=== PATIENT | female | born 1980 | race Caucasian/White ===

== ENCOUNTER 2017-01-20 06:05 | Day surgery (SDC) | payer MEDICAID ==
[2017-01-18 10:14] LABS: BASOPHILS % 0.4 % (0.0-2.0); EOSINOPHILS # 0.1 10^3/ul (0.0-0.5); EOSINOPHILS % 1.8 % (0.0-7.0); HEMATOCRIT 35.7 % (37.0-47.0); LYMPHOCYTES # 1.8 10^3/ul (0.8-2.9); LYMPHOCYTES % 33.6 % (15.0-51.0); MEAN CORPUSCULAR HEMOGLOBIN 29.1 pg (29.0-33.0); MEAN CORPUSCULAR HGB CONC 33.6 g/dl (32.0-37.0); MEAN CORPUSCULAR VOLUME 86.7 fl (82.0-101.0); MEAN PLATELET VOLUME 9.5 fl (7.4-10.4); MONOCYTE # 0.5 10^3/ul (0.3-0.9); MONOCYTES % 9.4 % (0.0-11.0); NEUTROPHILS % 54.6 % (39.0-77.0); PLATELET COUNT 307 10^3/UL (140-415); RED BLOOD COUNT 4.12 10^6/ul (4.20-5.40); RED CELL DISTRIBUTION WIDTH 13.1 % (11.5-14.5); WHITE BLOOD COUNT 5.5 10^3/ul (4.8-10.8)
[2017-01-18 10:32] LABS: ADD UMIC YES; UR ASCORBIC ACID NEGATIVE (NEGATIVE); UR BILIRUBIN (Dip) NEGATIVE (NEGATIVE); UR BLOOD (Dip) 3+ mg/dL (NEGATIVE); UR CLARITY SLIGHTLY CLOUDY (CLEAR); UR COLOR YELLOW (YELLOW); UR GLUCOSE (Dip) NEGATIVE (NEGATIVE); UR KETONES (Dip) NEGATIVE (NEGATIVE); UR LEUKOCYTE ESTERASE (Dip) NEGATIVE Leu/ul (NEGATIVE); UR NITRITE (Dip) NEGATIVE (NEGATIVE); UR RBC > 182 /HPF (0-5); UR SPECIFIC GRAVITY (Dip) 1.016 (1.003-1.030); UR TOTAL PROTEIN (Dip) NEGATIVE (NEGATIVE); UR UROBILINOGEN (Dip) NEGATIVE (NEGATIVE)
[2017-01-18 10:41] LABS: INR 0.99; PROTIME 13.1 Sec (12.2-14.2)
[2017-01-18 10:42] LABS: PARTIAL THROMBOPLASTIN TIME 26.9 Sec (25.0-35.0)
[2017-01-18 10:43] LABS: ALBUMIN 4.1 g/dl (3.3-4.9); ALBUMIN/GLOBULIN RATIO 1.07; BILIRUBIN,INDIRECT 0.2 mg/dl (0-1.1); BILIRUBIN,TOTAL 0.2 mg/dl (0.2-1.3); TOTAL PROTEIN 7.9 g/dl (6.1-8.1)
[2017-01-18 10:53] LABS: POTASSIUM 3.9 mmol/L (3.5-5.1)
[2017-01-18 10:54] LABS: CALCIUM 9.2 mg/dl (8.4-10.2); CREATININE 0.62 mg/dl (0.44-1.00)
[2017-01-19 09:46] VITALS: BMI 35.2
--- NOTE | 2017-01-19 23:20 | PREOPHP ---
DATE OF ADMISSION: 01/20/2017 She is to be admitted tomorrow for laparoscopic bilateral tubal ligation. HISTORY OF PRESENT ILLNESS: This is a 36-year-old female 3, para 2, who presented in the of [place] requesting sterilization based on her parity. The alternatives to this, the benefits from the method, the risks and possible complications, as well as 1% failure rate, were discussed with the rekha escobedo in great detail in the office. She was allowed to ask questions, and all of the questions heather e answered to her satisfaction and she signed the appropriate surgical informed consent. PAST MEDICAL HISTORY: The patient denies any medical problems including diabetes, cardiovascular di sease, renal disease, liver disease, thyroid disease or neurological problems. ALLERGIES: SHE HAS NO KNOWN ALLERGIES. MEDICATIONS: Takes no medications on a regular basis. OBSTETRICAL HISTORY: The patient had 3 pregnancies, 2 of which ended up in normal deliveries. She had 1 spontaneous . FAMILY HISTORY: Noncontributory. REVIEW OF SYSTEMS: Noncontributory. PHYSICAL EXAMINATION: GENERAL: Well-developed and nourished, in no distress, alert and oriented x3, with a height of 5 fe et 4 and a weight of 200 pounds. The BMI is 35. VITAL SIGNS: Show temperature to be 98, blood pressure 128/78, respirations 16 per minute, pulse is 72 per minute and regular. HEENT: Within normal limits. NECK: Supple. Thyroid is not palpable. There is no lymphadenopathy. BREASTS: Show no masses or lumps. LUNGS: Clear to percussion and auscultation. HEART: Normal sinus rhythm without murmur. ABDOMEN: Soft, obese. No organomegaly is present. LOWER EXTREMITIES: Within normal limits. PELVIC: Normal external genitalia. Cervix is normal. Bimanual exam: The uterus is mobile, firm, in the midline. There are no adnexal masses present. IMPRESSION: 1. Desires voluntary sterilization. 2. Obesity. PLAN: The patient is to be admitted for a laparoscopic bilateral tubal ligation under general anest hesia tomorrow, 01/20/2017. Dictated By: JENNIFER TIRADO/MIK Conf#: [id number] DID#: [id number]
[2017-01-20] VITALS (12 sets, daily range): BP systolic 115–140; BP diastolic 53–78; PULSE 64–72; RESP 14–16; Ht 168.9 cm; Wt 91.1 kg
[~2017-01-20] VITALS: Ht 168.9 cm; Wt 91.1 kg
[2017-01-20] MEDS ORDERED: CEFAZOLIN 1 GM INJ ONE (07:00)
[2017-01-20] MEDS ORDERED: ROCURONIUM 50 MG INJ ONE (07:00)
[2017-01-20] MEDS ORDERED: BUPIVACAINE 0.5%/EPI (SDV) 30 ML INJ ONE (07:54)
[2017-01-20] MEDS ORDERED: MIDAZOLAM 1 MG/ML 2 ML INJ ONE (08:13)
[2017-01-20] MEDS ORDERED: PROPOFOL 20 ML ONE (08:13)
[2017-01-20] MEDS ORDERED: SUCCINYLCHOLINE CHLORIDE 100 MG/5 ML SYG IV ONE (08:13)
[2017-01-20] MEDS ORDERED: FENTAnyl 50 MCG/ML VIAL ONE (08:13)
[2017-01-20] MEDS ORDERED: LIDOCAINE 2% (SDV) 5 ML INJ ONE (08:13)
[2017-01-20] MEDS ORDERED: DEXAMETHASONE 4 MG/ML 1 ML INJ ONE (08:38)
[2017-01-20] MEDS ORDERED: ONDANSETRON 4 MG INJ ONE (08:38)
[2017-01-20] MEDS ORDERED: NEOSTIGMINE 3 MG/3 ML SYRINGE ONE (08:39)
[2017-01-20] MEDS ORDERED: GLYCOPYRROLATE 0.4 MG INJ ONE (08:39)
[2017-01-20] MEDS ORDERED: KETOROLAC 30 MG INJ ONE (08:53)
[2017-01-20] MEDS ORDERED: LACTATED RINGER'S 1,000 ML IV SCH (09:05)
--- NOTE | 2017-01-20 09:05 | SIPON ---
Date/Time of Note Date/Time of Note See dictated note.DATE: 01/20/17 TIME: 09:03 Operative Report Preoperative Diagnosis Voluntary sterilization Obesity. Postoperative Diagnosis Same. Operation/Procedure Performed Laparoscopic BTL Surgeon Dr.Carlos Mckinney assistant technician None Anesthesia: general Estimated blood loss: minimal Transfusion Required none Specimen None Grafts/Implants none Complications none JENNIFER SANON MD Jan 20, 2017 09:05
[2017-01-20] MEDS ORDERED: DIPHENHYDRAMINE 50 MG INJ IV PRN (09:30)
[2017-01-20] MEDS ORDERED: morphine 2 MG INJ IV PRN (09:30)
[2017-01-20] MEDS ORDERED: FENTAnyl 50 MCG/ML VIAL IV PRN (09:30)
[2017-01-20] MEDS ORDERED: OXYCODONE/ACETAMINOPHEN (5/325) TAB PO PRN ×3 (09:30)
[2017-01-20] MEDS ORDERED: ACETAMINOPHEN 325 MG TAB PO PRN (09:30)
[2017-01-20] MEDS ORDERED: ONDANSETRON 4 MG INJ IV PRN ×2 (09:30)
[2017-01-20] MEDS ORDERED: HYDROmorphONE (0.2 MG/ML) 10ML SYG IV PRN (09:30)
[2017-01-20] MEDS ORDERED: IBUPROFEN 600 MG TAB PO PRN (09:30)
--- NOTE | 2017-01-20 09:51 | OPR ---
DATE OF OPERATION: 01/20/2017 PREOPERATIVE DIAGNOSES: 1. Voluntary sterilization. 2. Obesity. POSTOPERATIVE DIAGNOSES: 1. Voluntary sterilization. 2. Obesity. OPERATION PERFORMED: Laparoscopic bilateral tubal ligation. SURGEON: Jennifer Serna MD. ANESTHESIA: General Christiano. ESTIMATED BLOOD LOSS: Negligible. SPECIMENS: None. COMPLICATIONS: None. PROCEDURE AND FINDINGS: With the patient under general anesthesia, laid on the table in the dorsal lithotomy position. Her perineum and vagina were prepped with Betadine and then Bush catheter was inserted. The abdomen was prepped with ChloraPrep and after 3 minutes, she was draped in the usual sterile fashion. A small 5 mm incision was done at the level of the umbilicus. The Veress needle w as inserted while we were tenting up the anterior abdominal wall. Once the tip of the needle was as certained to be intraperitoneal by the hanging drop of saline technique, it was then connected to th e CO2 insufflator. Good pneumoperitoneum was obtained. The needle was then removed. A 5 mm trocar was passed in while we were tenting up the anterior abdominal wall. Through this port, a 5 mm lapa roscope with the endocamera was inserted. The pelvic organs were found to be normal. A second port was placed in the hypogastric area under direct vision. Through this 5 mm port, now the Kleppinger clamp was inserted, connected to the gyrus device at 35 urbina current. The tubal ligation was turcios ied out starting on the right side, burning the tubes through and through for about 1-1/2 cm. The s chema was repeated on the contralateral side. Good hemostasis was observed. All the instruments were then removed from the patient's abdomen. Pictures were taken for documentation. The incisions wer e infiltrated with 0.5% Marcaine with epinephrine with a total of 20 mL. They were closed with 4-0 Monocryl. Band-Aids were applied and the patient was taken to recovery room with all vital signs st able. EBL was negligible. Needle, sponge and instrument count at the end of the procedure was neli ect twice. Dictated By: JENNIFER TIRADO/NTS Conf#: [id number] DID#: [id number]
== END 2017-01-20 10:40 | disposition home or self-care (01) ==
LOC: SDS 06:05
PROVIDERS: ATTEND Specialist
DX: Z30.2 Encounter for sterilization (principal); E66.9 Obesity, unspecified; Z68.31 Body mass index [BMI] 31.0-31.9, adult
CPT/HCPCS: 58670; 80053; 81001; 84703; 85025; 85610; 85730; 86850; 86900; 86901; J0690; J1100; J1885; J2250; J2405; J2710; J3010; Z7512; Z7610